=== PATIENT | female | born 1970 | race African-American/Black ===

== ENCOUNTER 2019-03-20 10:10 | Emergency (ER) | payer MEDICARE, MEDICAID ==
[~2019-03-20] VITALS: Ht 162.6 cm; Wt 68.0 kg
[2019-03-20] MEDS ORDERED: KETOROLAC 60MG/2ML VIAL IM STA (11:03)
[2019-03-20] MEDS ORDERED: LIDOCAINE HCL/PF 1% 10 MG/ML 5ML VIAL IJ ONE (11:15)
[2019-03-20] MEDS ORDERED: BACITRACIN ZINC OINT UDPKT TOP ONE (11:15)
[2019-03-20] MEDS ORDERED: TETANUS, DIPHTHERIA, PERTUSSIS VAC/PF 0.5ML (>7YR OLD) IM ONE (11:15)
[2019-03-20 13:48] VITALS: BP 145/89
== END 2019-03-20 13:48 | disposition home or self-care (01) ==
LOC: ER 10:30
DX: S61.210A Laceration without foreign body of right index finger without damage to nail, initial encounter (principal); S61.212A Laceration without foreign body of right middle finger without damage to nail, initial encounter; I10 Essential (primary) hypertension; F17.200 Nicotine dependence, unspecified, uncomplicated; F12.10 Cannabis abuse, uncomplicated; X99.8XXA Assault by other sharp object, initial encounter; Y93.89 Activity, other specified; Y92.89 Other specified places as the place of occurrence of the external cause; Y99.8 Other external cause status
CPT/HCPCS: 12002; 73140; 90471; 90715; 96372; 99283; J1885; J3490

== ENCOUNTER 2019-04-08 11:09 | Emergency (ER) | payer MEDICARE, MEDICAID ==
[~2019-04-08] VITALS: Ht 162.6 cm; Wt 64.0 kg
[2019-04-08 11:24] VITALS: BP 148/89
== END 2019-04-08 12:21 | disposition home or self-care (01) ==
LOC: ER 11:09
DX: S61.210D Laceration without foreign body of right index finger without damage to nail, subsequent encounter (principal); F17.290 Nicotine dependence, other tobacco product, uncomplicated; X58.XXXD Exposure to other specified factors, subsequent encounter
CPT/HCPCS: 99283

== ENCOUNTER 2019-04-11 10:59 | Emergency (ER) | payer MEDICARE, MEDICAID ==
[~2019-04-11] VITALS: Ht 162.6 cm; Wt 68.0 kg
[2019-04-11] MEDS ORDERED: BACITRACIN ZINC OINT UDPKT TOP ONE (12:00)
[2019-04-11] MEDS ORDERED: CEPHALEXIN 250MG CAPSULE PO ONE (12:00)
[2019-04-11 12:20] VITALS: BP 128/80
== END 2019-04-11 12:25 | disposition home or self-care (01) ==
LOC: ER 10:59
DX: T81.49XA Infection following a procedure, other surgical site, initial encounter (principal); L08.89 Other specified local infections of the skin and subcutaneous tissue; F17.210 Nicotine dependence, cigarettes, uncomplicated; Y83.8 Other surgical procedures as the cause of abnormal reaction of the patient, or of later complication, without mention of misadventure at the time of the procedure; Y92.018 Other place in single-family (private) house as the place of occurrence of the external cause
CPT/HCPCS: 99283

== ENCOUNTER 2019-09-07 17:02 | Emergency (ER) | payer MEDICARE, MEDICAID ==
[~2019-09-07] VITALS: Ht 160 cm; Wt 68.0 kg
[2019-09-07] MEDS ORDERED: KETOROLAC 60MG/2ML VIAL IM STA (22:43)
[2019-09-07] MEDS ORDERED: ASPIRIN 81MG TABLET PO ONE (22:45)
[2019-09-07 23:45] LABS: HEMATOCRIT. 34.4 % (36.0-48.0); HEMOGLOBIN. 11.6 g/dL (12.0-16.0); MEAN CORPUSCULAR HEMOGLOBIN 31.5 pg (28.0-32.0); MEAN CORPUSCULAR VOLUME 93.8 fL (81.0-99.0); MEAN PLATELET VOLUME 7.1 fl (7.4-10.4); PLATELET 285 x1000/uL (130-400); RED BLOOD CELL COUNT 3.67 mill/uL (4.2-5.4); RED CELL DISTRIBUTION WIDTH 16.1 % (11.6-14.6)
[2019-09-07 23:49] LABS: CHLORIDE 106 mEq/L (98-107)
[2019-09-07 23:57] LABS: ETHANOL BLOOD 55 mg/dL
[2019-09-08 01:04] LABS: PLATELET ESTIMATE NORMAL
[2019-09-08 04:33] LABS: *AMPHETAMINES SCREEN URINE NEGATIVE (NEGATIVE); *BARBITURATES SCREEN URINE NEGATIVE (NEGATIVE); *BENZODIAZEPINES SCREEN URINE NEGATIVE (NEGATIVE); *COCAINE SCREEN URINE NEGATIVE (NEGATIVE); METHADONE URINE SCREEN NEGATIVE (NEGATIVE); OPIATES URINE SCREEN NEGATIVE (NEGATIVE); PHENCYCLIDINE URINE SCREEN NEGATIVE (NEGATIVE)
[2019-09-08 04:59] LABS: CANNABINOID URINE SCREEN PRESUMTIVE POSITIVE (NEGATIVE)
[2019-09-08 05:10] VITALS: BP 142/75
== END 2019-09-08 05:25 | disposition home or self-care (01) ==
LOC: ER 17:02
DX: R07.89 Other chest pain (principal); R05 Cough; I10 Essential (primary) hypertension; M54.30 Sciatica, unspecified side; F17.210 Nicotine dependence, cigarettes, uncomplicated
CPT/HCPCS: 36415; 71045; 80053; 80305; 80320; 81025; 83880; 84484; 85025; 87804; 93005; 96372; 99284; J1885; G0480

== ENCOUNTER 2021-06-26 17:26 | Emergency (ER) | payer MEDICARE, MEDICAID ==
[~2021-06-26] VITALS: Ht 165.1 cm; Wt 82.0 kg
[2021-06-26] MEDS ORDERED: KETOROLAC 60MG/2ML VIAL IM ONE (18:45)
[2021-06-26] MEDS ORDERED: ONDANSETRON HCL 4MG/2ML INJ IM ONE (19:45)
[2021-06-26] MEDS ORDERED: TRAM50TA3 MT (20:37)
[2021-06-26] MEDS ORDERED: IBUP-2028 MT (20:37)
[2021-06-27 00:51] VITALS: BP 119/80
== END 2021-06-26 20:48 | disposition home or self-care (01) ==
LOC: ER 17:26
DX: M54.41 Lumbago with sciatica, right side (principal); I10 Essential (primary) hypertension; J44.9 Chronic obstructive pulmonary disease, unspecified; Z88.0 Allergy status to penicillin; Z79.899 Other long term (current) drug therapy
CPT/HCPCS: 72100; 73502; 96372; 99284; J1885; J2405

== ENCOUNTER 2021-12-24 20:16 | Emergency (ER) | payer BC, MEDICAID ==
[~2021-12-24] VITALS: Ht 162.6 cm; Wt 75.5 kg
[~2021-12-24 20:16] MED LIST: IBUP-2028 MT; TRAM50TA3 MT
[2021-12-24 23:09] LABS: BASOPHILS % 2.1 % (0.0-2.0); EOSINOPHILS % 2.4 % (0.0-5.0); HEMATOCRIT. 35.7 % (36.0-48.0); HEMOGLOBIN. 11.5 g/dL (12.0-16.0); LYMPHOCYTES % 44.9 % (20.0-50.0); MEAN CORPUSCULAR HEMOGLOBIN 29.1 pg (28.0-32.0); MEAN PLATELET VOLUME 7.8 fl (7.4-10.4); MONOCYTES % 8.1 % (2.0-8.0); NEUTROPHILS % 42.5 % (40.0-76.0); PLATELET 253 x1000/uL (130-400); RED BLOOD CELL COUNT 3.97 mill/uL (4.2-5.4); RED CELL DISTRIBUTION WIDTH 16.3 % (11.6-14.6)
[2021-12-24 23:14] LABS: CHLORIDE 104 mEq/L (98-107)
[2021-12-24] MEDS ORDERED: POTASSIUM CHLORIDE 20MEQ TABLET SR PO ONE (23:30)
[2021-12-24 23:45] VITALS: BP 135/81
== END 2021-12-25 00:12 | disposition home or self-care (01) ==
LOC: ER 20:16
DX: D25.9 Leiomyoma of uterus, unspecified (principal); I10 Essential (primary) hypertension; D64.9 Anemia, unspecified; E87.6 Hypokalemia; J44.9 Chronic obstructive pulmonary disease, unspecified; J45.909 Unspecified asthma, uncomplicated
CPT/HCPCS: 36415; 80053; 85025; 86850; 86900; 99283

== ENCOUNTER 2023-01-16 07:12 | Inpatient (IN) | payer BC, MEDICAID ==
[~2023-01-16] VITALS: Ht 162.6 cm; Wt 76.7 kg
[~2023-01-16 07:12] MED LIST changes: +IBUP-2030 PO
[2023-01-16] MEDS ORDERED: KETOROLAC 30MG/ML VIAL IV STA (07:23)
[2023-01-16] MEDS ORDERED: SODIUM CHLORIDE 0.9% 1,000 ML IV ONE ×3 (07:30→11:00)
[2023-01-16 07:52] LABS: HEMOGLOBIN. 14.2 g/dL (12.0-16.0); MEAN CORPUSCULAR HEMOGLOBIN 29.7 pg (28.0-32.0); MEAN CORPUSCULAR VOLUME 89.7 fL (81.0-99.0); MEAN PLATELET VOLUME 8.1 fl (7.4-10.4); PLATELET 201 x1000/uL (130-400); RED BLOOD CELL COUNT 4.79 mill/uL (4.2-5.4)
[2023-01-16 08:00] LABS: CHLORIDE 92 mEq/L (98-107)
[2023-01-16 08:08] LABS: ETHANOL BLOOD < 10 mg/dL
[2023-01-16 08:18] LABS: INR 0.9; PROTHROMBIN TIME 10.2 sec (9.6-11.0)
[2023-01-16] MEDS ORDERED: CEFTRIAXONE 1GM PREMIX 50 ML IV ONE (08:30)
[2023-01-16] MEDS ORDERED: MAGNESIUM 2 G PREMIX 50 ML IV ONE (08:30)
[2023-01-16] MEDS ORDERED: POTASSIUM CHLORIDE 20MEQ TABLET SR PO ONE (08:30)
[2023-01-16] MEDS ORDERED: AZITHROMYCIN 500MG/250ML 250 ML IV ONE (08:30)
[2023-01-16] MEDS ORDERED: KCL 20MEQ/100ML PREMIX 100 ML IV ONE (08:30)
[2023-01-16 08:56] LABS: PLATELET ESTIMATE NORMAL
[2023-01-16 08:57] LABS: PHOSPHORUS 2.3 mg/dL (2.5-4.9)
[2023-01-16 09:24] LABS: CREATINE KINASE 141 IU/L (26-192)
[2023-01-16 14:45] VITALS: BP 115/73
[2023-01-16] MEDS ORDERED: CLONIDINE 0.1MG TABLET PO PRN (15:15)
[2023-01-16] MEDS ORDERED: IPRATROPIUM/ALBUTEROL 0.5-3(2.5)MG/3ML NEB HHN PRN (15:15)
[2023-01-16] MEDS ORDERED: DIPHENHYDRAMINE 50MG/ML VIAL IV PRN (15:15)
[2023-01-16] MEDS ORDERED: ONDANSETRON HCL 4MG/2ML INJ IV PRN (15:15)
[2023-01-16] MEDS ORDERED: DEXTROSE 50% WATER 50ML SYRINGE IV PRN (15:45)
[2023-01-16 16:00] VITALS: BP 118/70
[2023-01-16] MEDS ORDERED: FOLIC ACID 1 MG, THIAMINE HCL 100 MG, MVI, ADULT NO.1 10 ML in DEXTROSE 5% WATER 1,000 ML IV ONE ×4 (16:30)
[2023-01-16] MEDS: BLOOD SUGAR DIAGNOSTIC STRIP TEST SCH ×2 (17:47→21:25)
[2023-01-16] MEDS: INSULIN LISPRO 100 UNITS/ML SUBCUT SCH ×2 (17:48→21:00)
[2023-01-16 20:00] VITALS: BP 94/64
[2023-01-16] MEDS: CHLORDIAZEPOXIDE 25MG CAPSULE PO SCH (21:25)
[2023-01-17] VITALS: BP 111/68
[2023-01-17] MEDS: ACETAMINOPHEN 325MG TABLET PO PRN ×3 (00:01→17:47)
[2023-01-17 04:00] VITALS: BP 103/62
[2023-01-17] MEDS: CHLORDIAZEPOXIDE 25MG CAPSULE PO SCH ×3 (05:50→21:07)
[2023-01-17] MEDS: BLOOD SUGAR DIAGNOSTIC STRIP TEST SCH ×4 (05:52→21:00)
[2023-01-17 06:44] LABS: HEMATOCRIT. 36.6 % (36.0-48.0); HEMOGLOBIN. 12.4 g/dL (12.0-16.0); MEAN CORPUSCULAR HEMOGLOBIN 30.1 pg (28.0-32.0); MEAN CORPUSCULAR VOLUME 88.7 fL (81.0-99.0); MEAN PLATELET VOLUME 8.7 fl (7.4-10.4); PLATELET 145 x1000/uL (130-400); RED BLOOD CELL COUNT 4.13 mill/uL (4.2-5.4); RED CELL DISTRIBUTION WIDTH 16.9 % (11.6-14.6)
[2023-01-17 07:08] LABS: CHLORIDE 103 mEq/L (98-107)
[2023-01-17] MEDS ORDERED: POTASSIUM CHLORIDE 20MEQ TABLET SR PO NR ×2 (07:45→17:00)
[2023-01-17 08:00] VITALS: BP 97/61
[2023-01-17] MEDS: INSULIN LISPRO 100 UNITS/ML SUBCUT SCH ×4 (08:10→21:00)
[2023-01-17] MEDS ORDERED: CEFTRIAXONE 1GM PREMIX 50 ML IV SCH (08:30)
[2023-01-17] MEDS ORDERED: KCL 20MEQ/100ML PREMIX 100 ML IV NR (09:00)
[2023-01-17 12:00] VITALS: BP 97/61
[2023-01-17] MEDS ORDERED: AZITHROMYCIN 500 MG in DEXT 5% WATER 250 ML IV SCH ×2 (12:00→14:00)
[2023-01-17 13:19] LABS: CLARITY URINE CLEAR (CLEAR); COLOR URINE YELLOW (YELLOW); KETONES URINE TRACE (NEGATIVE); LEUKOCYTE ESTERASE URINE 1+ (NEGATIVE); NITRITE URINE NEGATIVE (NEGATIVE); OCCULT BLOOD URINE 3+ (NEGATIVE); PROTEIN URINE 2+ (NEGATIVE); SPECIFIC GRAVITY URINE 1.019 (1.005-1.030); UROBILINOGEN URINE 0.2 E.U./dL (0.2-1.0)
[2023-01-17 14:05] LABS: PLATELET ESTIMATE NORMAL
[2023-01-17 14:16] LABS: *AMPHETAMINES SCREEN URINE NEGATIVE (NEGATIVE); *BARBITURATES SCREEN URINE NEGATIVE (NEGATIVE); *BENZODIAZEPINES SCREEN URINE NEGATIVE (NEGATIVE); *COCAINE SCREEN URINE NEGATIVE (NEGATIVE); CANNABINOID URINE SCREEN PRESUMTIVE POSITIVE (NEGATIVE); METHADONE URINE SCREEN NEGATIVE (NEGATIVE); OPIATES URINE SCREEN NEGATIVE (NEGATIVE); PHENCYCLIDINE URINE SCREEN NEGATIVE (NEGATIVE)
[2023-01-17 16:00] VITALS: BP 112/81
[2023-01-17 20:00] VITALS: BP 101/75
[2023-01-18] MEDS: CHLORDIAZEPOXIDE 25MG CAPSULE PO SCH (05:21)
[2023-01-18] MEDS: BLOOD SUGAR DIAGNOSTIC STRIP TEST SCH (05:21)
[2023-01-18] MEDS ORDERED: LIDOCAINE HCL 1% 30ML VIAL (10MG/ML) ONE (08:05)
== END 2023-01-18 10:00 | disposition left against medical advice (07) | DRG 871 ==
LOC: ER 07:21 → 7WST 11:24 → EDBEDREQTM 11:30 → EDBEDREQ 11:30 → ENRESERV 12:49
PROVIDERS: ADMIT Internal Medicine; ATTEND Internal Medicine
DX: A41.9 Sepsis, unspecified organism (principal); J18.9 Pneumonia, unspecified organism; J44.0 Chronic obstructive pulmonary disease with (acute) lower respiratory infection; F10.239 Alcohol dependence with withdrawal, unspecified; E87.1 Hypo-osmolality and hyponatremia; E87.6 Hypokalemia; Z53.29 Procedure and treatment not carried out because of patient's decision for other reasons; Z20.822 Contact with and (suspected) exposure to COVID-19; R65.20 Severe sepsis without septic shock; J44.9 Chronic obstructive pulmonary disease, unspecified; R73.9 Hyperglycemia, unspecified; F41.9 Anxiety disorder, unspecified; I10 Essential (primary) hypertension; F32.A Depression, unspecified; Z88.0 Allergy status to penicillin; Z79.899 Other long term (current) drug therapy
CPT/HCPCS: 36415; 71045; 71250; 74176; 80053; 80305; 80320; 81003; 82550; 82962; 83036; 83605; 83735; 84100; 84145; 85025; 87426; 87804; 93005; 93970; 99291; C1893; C9803; J0456; J0696; J1885; J3411; J3475; J3480; J3490; J7030; J7060; J7070; G0480

== ENCOUNTER 2024-03-04 20:13 | Emergency (ER) | payer BC, MEDICAID ==
[~2024-03-04] VITALS: Ht 167.6 cm; Wt 70.0 kg
[2024-03-04 20:23] VITALS: BP 127/72; PULSE 68; RESP 16; TEMP 98; O2SAT 95
[2024-03-05] MEDS: KETOROLAC 30MG/ML VIAL IM ONE (02:19)
[2024-03-05] MEDS: HYDROCODONE/ACETAMINOPHEN 5/325MG TABLET PO ONE (02:19)
[2024-03-05] MEDS ORDERED: ACET-2708 MT (03:49)
[2024-03-05] MEDS ORDERED: LIDO700A15 TP (03:49)
[2024-03-05] MEDS ORDERED: IBUP-2028 MT (03:49)
== END 2024-03-05 07:33 | disposition home or self-care (01) ==
LOC: ER 20:13
DX: M54.50 Low back pain, unspecified (principal); F41.9 Anxiety disorder, unspecified; J45.909 Unspecified asthma, uncomplicated; F31.9 Bipolar disorder, unspecified; J44.9 Chronic obstructive pulmonary disease, unspecified; I10 Essential (primary) hypertension; Z88.0 Allergy status to penicillin
CPT/HCPCS: 99285; 72131; 96372; J1885

== ENCOUNTER 2024-04-27 18:52 | Inpatient (IN) | payer BC, MEDICAID ==
[~2024-04-27] VITALS: Ht 162.6 cm; Wt 74.8 kg
[~2024-04-27 18:52] MED LIST changes: +ACET-2708 MT; +LIDO700A15 TP
[2024-04-27] MEDS: DIPHENHYDRAMINE 50MG/ML VIAL IM STA (19:47)
[2024-04-27] MEDS: HALOPERIDOL LACTATE 5MG/ML VIAL IM ONE (19:47)
[2024-04-27 20:06] LABS: CLARITY URINE CLEAR (CLEAR); COLOR URINE YELLOW (YELLOW); GLUCOSE URINE NEGATIVE (NEGATIVE); KETONES URINE NEGATIVE (NEGATIVE); LEUKOCYTE ESTERASE URINE 1+ (NEGATIVE); NITRITE URINE NEGATIVE (NEGATIVE); OCCULT BLOOD URINE NEGATIVE (NEGATIVE); PROTEIN URINE NEGATIVE (NEGATIVE); SPECIFIC GRAVITY URINE 1.007 (1.005-1.030); UROBILINOGEN URINE 0.2 E.U./dL (0.2-1.0)
[2024-04-27 20:28] LABS: *AMPHETAMINES SCREEN URINE NEGATIVE (NEGATIVE); *BARBITURATES SCREEN URINE NEGATIVE (NEGATIVE); *BENZODIAZEPINES SCREEN URINE NEGATIVE (NEGATIVE); *COCAINE SCREEN URINE NEGATIVE (NEGATIVE); CANNABINOID URINE SCREEN PRESUMPTIVE POSITIVE (NEGATIVE); ECSTASY MDMA SCREEN URINE NEGATIVE (NEGATIVE); METHADONE URINE SCREEN NEGATIVE (NEGATIVE); OPIATES URINE SCREEN NEGATIVE (NEGATIVE); PHENCYCLIDINE URINE SCREEN NEGATIVE (NEGATIVE)
[2024-04-27 20:29] LABS: BACTERIA URINE 1+; SQUAMOUS EPITHELIAL CELL URINE 1+ /lpf (RARE/1+); TRICHOMONAS URINE 2+
[2024-04-27 21:08] LABS: BASOPHILS % 0.4 % (0.0-2.0); EOSINOPHILS % 2.6 % (0.0-5.0); HEMATOCRIT. 38.3 % (36.0-48.0); HEMOGLOBIN. 12.6 g/dL (12.0-16.0); LYMPHOCYTES % 50.6 % (20.0-50.0); MEAN CORPUSCULAR HEMOGLOBIN 31.8 pg (28.0-32.0); MEAN CORPUSCULAR VOLUME 96.3 fL (81.0-99.0); MEAN PLATELET VOLUME 7.7 fl (7.4-10.4); MONOCYTES % 7.5 % (2.0-8.0); NEUTROPHILS % 38.9 % (40.0-76.0); PLATELET 232 x1000/uL (130-400); RED BLOOD CELL COUNT 3.98 mill/uL (4.2-5.4); RED CELL DISTRIBUTION WIDTH 15.4 % (11.6-14.6); WHITE BLOOD COUNT 5.2 x1000/uL (4.5-11.0)
[2024-04-27 21:13] LABS: CHLORIDE 117 mEq/L (98-107); POTASSIUM 3.9 mEq/L (3.5-5.1); SODIUM 150 mEq/L (136-145)
[2024-04-27 21:14] LABS: CALCIUM 9.1 mg/dL (8.7-10.4); CARBON DIOXIDE 26 mEq/L (21-32)
[2024-04-27 21:19] LABS: CREATININE 0.6 mg/dL (0.6-1.0); ETHANOL BLOOD 300 mg/dL (<10); GLUCOSE 95 mg/dL (70-105); UREA NITROGEN BLOOD 8 mg/dL (9-23)
[2024-04-27 21:21] LABS: ALANINE AMINOTRANSFERASE 35 IU/L (10-49); ALBUMIN 4.6 g/dL (3.2-4.8); ASPARTATE AMINOTRANSFERASE 48 IU/L (<34); BILIRUBIN TOTAL 0.3 mg/dL (0.1-1.0); PHOSPHORUS 4.7 mg/dL (2.5-4.9); PROTEIN TOTAL 7.4 g/dL (6.0-8.3)
[2024-04-27 21:27] LABS: BILIRUBIN DIRECT < 0.1 mg/dL (<=3.0)
[2024-04-27] MEDS: SODIUM CHLORIDE 0.9% 1,000 ML IV ONE (22:00)
[2024-04-27] MEDS: FOLIC ACID 1 MG, THIAMINE HCL 100 MG, MVI, ADULT NO.1 10 ML in DEXTROSE 5% WATER 1,000 ML IV NR (22:12)
[2024-04-28] VITALS (8 sets, daily range): BP systolic 101–143; BP diastolic 67–83; PULSE 62–85; RESP 16–19; TEMP 95.7–101
[2024-04-28] MEDS ORDERED: ONDANSETRON HCL 4MG/2ML INJ IV PRN (06:45)
[2024-04-28] MEDS: PANTOPRAZOLE SODIUM 40 MG/VIAL IV SCH (08:10)
[2024-04-28] MEDS: DEXT 5%/0.45% NACL KCL 20MEQ/L 1,000 ML IV SCH (10:22)
[2024-04-28] MEDS: LORAZEPAM 0.5MG TABLET PO PRN (19:45)
[2024-04-28] MEDS ORDERED: HYDROCODONE/ACETAMINOPHEN 5/325MG TABLET PO PRN (20:00)
[2024-04-28] MEDS ORDERED: NALOXONE HCL 0.4MG/ML VIAL IV PRN (20:15)
[2024-04-28] MEDS: CHLORDIAZEPOXIDE 25MG CAPSULE PO SCH (20:19)
[2024-04-28] MEDS: FOLIC ACID 1 MG, THIAMINE HCL 100 MG, MVI, ADULT NO.1 10 ML in DEXTROSE 5% WATER 1,000 ML IV SCH (23:33)
[2024-04-29 04:00] VITALS: BP 139/68; PULSE 70; RESP 16; TEMP 97.7
[2024-04-29] MEDS: PANTOPRAZOLE 40MG DR TABLET PO SCH (06:28)
[2024-04-29 07:21] LABS: CHLORIDE 104 mEq/L (98-107); POTASSIUM 3.3 mEq/L (3.5-5.1); SODIUM 137 mEq/L (136-145)
[2024-04-29 07:22] LABS: CALCIUM 8.6 mg/dL (8.7-10.4); CARBON DIOXIDE 25 mEq/L (21-32)
[2024-04-29 07:27] LABS: CREATININE 0.7 mg/dL (0.6-1.0)
[2024-04-29 07:28] LABS: GLUCOSE 105 mg/dL (70-105); UREA NITROGEN BLOOD 8 mg/dL (9-23)
[2024-04-29 07:33] LABS: BASOPHILS % 1.2 % (0.0-2.0); EOSINOPHILS % 3.5 % (0.0-5.0); HEMATOCRIT. 39.2 % (36.0-48.0); HEMOGLOBIN. 12.9 g/dL (12.0-16.0); LYMPHOCYTES % 32.6 % (20.0-50.0); MEAN CORPUSCULAR HEMOGLOBIN 31.5 pg (28.0-32.0); MEAN CORPUSCULAR HGB CONC 32.9 g/dL (31.0-37.0); MEAN CORPUSCULAR VOLUME 95.8 fL (81.0-99.0); MEAN PLATELET VOLUME 8.7 fl (7.4-10.4); MONOCYTES % 11.3 % (2.0-8.0); NEUTROPHILS % 51.4 % (40.0-76.0); PLATELET 218 x1000/uL (130-400); RED CELL DISTRIBUTION WIDTH 15.3 % (11.6-14.6); WHITE BLOOD COUNT 4.8 x1000/uL (4.5-11.0)
[2024-04-29 08:00] VITALS: BP 148/110; PULSE 90; RESP 20; TEMP 97.7
[2024-04-29] MEDS: POTASSIUM CHLORIDE 20MEQ TABLET SR PO NR (10:50)
[2024-04-29 12:00] VITALS: BP 141/94; PULSE 66; RESP 18; TEMP 97.7
[2024-04-29 12:56] VITALS: BP 141/94; PULSE 66; TEMP 97.7; O2SAT 100
== END 2024-04-29 15:04 | disposition home or self-care (01) | DRG 896 ==
LOC: ER 18:52 → 8WST 20:35 → EDBEDREQ 22:33 → EDBEDREQTM 22:33
PROVIDERS: ADMIT Internal Medicine; ATTEND Internal Medicine
DX: F10.239 Alcohol dependence with withdrawal, unspecified (principal); G92.8 Other toxic encephalopathy; F31.9 Bipolar disorder, unspecified; F41.1 Generalized anxiety disorder; I10 Essential (primary) hypertension; J44.9 Chronic obstructive pulmonary disease, unspecified; F10.229 Alcohol dependence with intoxication, unspecified; F12.90 Cannabis use, unspecified, uncomplicated; Z88.0 Allergy status to penicillin; Z79.899 Other long term (current) drug therapy
CPT/HCPCS: 36415; 80048; 80076; 80305; 80320; 81003; 82962; 83735; 84100; 85025; 99285; J1200; J1630; J2470; J3411; J3490; J7030; J7070; G0480

== ENCOUNTER 2025-04-28 13:00 | Emergency (ER) | payer MEDICARE, MEDICAID ==
[~2025-04-28] VITALS: Ht 162.6 cm; Wt 85.0 kg
[~2025-04-28 13:00] MED LIST changes: +LIDO-53 TP; -LIDO700A15 TP
[2025-04-28 13:14] VITALS: O2SAT 95
[2025-04-28] MEDS ORDERED: IPRATROPIUM/ALBUTEROL 0.5-3(2.5)MG/3ML NEB HHN ONE (13:45)
[2025-04-28] MEDS: SODIUM CHLORIDE 0.9% 1,000 ML IV ONE (14:14)
[2025-04-28 14:23] LABS: BASOPHILS % 1.6 % (0.0-2.0); EOSINOPHILS % 0.5 % (0.0-5.0); HEMATOCRIT. 36.8 % (36.0-48.0); HEMOGLOBIN. 12.2 g/dL (12.0-16.0); LYMPHOCYTES % 23.2 % (20.0-50.0); MEAN PLATELET VOLUME 8.1 fl (7.4-10.4); MONOCYTES % 7.0 % (2.0-8.0); NEUTROPHILS % 67.7 % (40.0-76.0); PLATELET 194 x1000/uL (130-400); RED BLOOD CELL COUNT 3.74 mill/uL (4.2-5.4); RED CELL DISTRIBUTION WIDTH 15.8 % (11.6-14.6)
[2025-04-28 14:29] LABS: CREATININE 0.5 mg/dL (0.6-1.0); UREA NITROGEN BLOOD 8 mg/dL (9-23)
[2025-04-28 14:38] LABS: ETHANOL BLOOD 283 mg/dL (<10)
[2025-04-28 16:50] LABS: INR 1.0
[2025-04-28] MEDS ORDERED: IPRATROPIUM/ALBUTEROL 0.5-3(2.5)MG/3ML NEB ONE (18:00)
[2025-04-28 18:43] VITALS: BP 126/73; PULSE 66; RESP 18; TEMP 36.9; O2SAT 95
== END 2025-04-28 19:49 | disposition home or self-care (01) ==
LOC: ER 13:00
DX: F10.129 Alcohol abuse with intoxication, unspecified (principal); I10 Essential (primary) hypertension; J44.89 Other specified chronic obstructive pulmonary disease; F31.9 Bipolar disorder, unspecified; F41.9 Anxiety disorder, unspecified; Z79.899 Other long term (current) drug therapy; Z98.890 Other specified postprocedural states; Z88.0 Allergy status to penicillin; Y90.8 Blood alcohol level of 240 mg/100 ml or more
CPT/HCPCS: 80048; 80320; 83690; 85025; 85610; 36415; 96360; 99285; J7030; G0480

== ENCOUNTER 2025-09-18 13:47 | Emergency (ER) | payer MEDICARE, MEDICAID ==
[~2025-09-18] VITALS: Ht 162.6 cm; Wt 81.0 kg
[~2025-09-18 13:47] MED LIST changes: +CHLO25CA10 MT; +FOLI-43 MT; -IBUP-2030 PO; +MULT-379 MT; +THIA100T72 PO; -TRAM50TA3 MT
[2025-09-18 13:48] VITALS: O2SAT 99
[2025-09-18 17:43] VITALS: BP 118/85; PULSE 80; RESP 17; TEMP 36.9; O2SAT 99
== END 2025-09-18 17:46 | disposition home or self-care (01) ==
LOC: ER 13:47
DX: F10.229 Alcohol dependence with intoxication, unspecified (principal); F31.9 Bipolar disorder, unspecified; F41.9 Anxiety disorder, unspecified; I10 Essential (primary) hypertension; J44.89 Other specified chronic obstructive pulmonary disease; Z79.899 Other long term (current) drug therapy; Z88.0 Allergy status to penicillin; Y90.9 Presence of alcohol in blood, level not specified
CPT/HCPCS: 99283